=== PATIENT | male | born 1990 | race Two or more races ===

== ENCOUNTER 2021-03-11 18:05 | Emergency (ER) | payer SELFPAY ==
[~2021-03-11] VITALS: Ht 172.7 cm; Wt 81.2 kg
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
--- NOTE | 2021-03-11 18:15 | NUR ---
DR. BAEBE AT BEDSIDE FOR EVAL.
[2021-03-11] MEDS ORDERED: LEVETIRACETAM (500MG) 1,000 MG in IV NS 0.9% 100 ML IV SCH (18:30)
[2021-03-11 18:45] LABS: BASOPHILS # (AUTO) 0.1 /CMM (0.0-0.2); BASOPHILS % (AUTO) 0.7 % (0.0-2.0); EOSINOPHILS % (AUTO) 1.4 % (0.0-6.0); HEMATOCRIT 40 % (39-51); LYMPHOCYTES # (AUTO) 1.6 /CMM (0.8-4.8); LYMPHOCYTES % (AUTO) 21.4 % (20.0-44.0); MEAN CORPUSCULAR HGB CONC 35 g/dl (31.0-36.0); MEAN CORPUSCULAR VOLUME 91 fL (80-96); MONOCYTES # (AUTO) 0.6 /CMM (0.1-1.30); MONOCYTES % (AUTO) 8.2 % (2.0-12.0); NEUTROPHILS # (AUTO) 5.2 /CMM (1.8-8.9); NEUTROPHILS % (AUTO) 68.3 % (43.0-81.0); PLATELET COUNT (AUTO) 353 /CMM (150-450); RED BLOOD CELL COUNT(AUTO) 4.44 MIL/uL (4.5-6.0); WHITE BLOOD COUNT (AUTO) 7.6 K/uL (4.3-11.0)
[2021-03-11 18:54] LABS: CALCIUM, SERUM 8.9 mg/dL (8.5-10.1); CREATININE 1.2 mg/dL (0.6-1.3); POTASSIUM 3.7 mmol/L (3.5-5.1)
--- NOTE | 2021-03-11 19:30 | NUR ---
RECEIVED REPORT FROM DAY SHIFT NURSE. PATIENT IS A/OX4, CONNECTED TO VRT MECHANIC AND POX, PATIENT IN NO SIGNS OF DISTRESS. WILL CONTINUE TO MONITOR.
[2021-03-11] MEDS ORDERED: LEVE500T9 PO (19:42)
--- NOTE | 2021-03-11 20:14 | NUR ---
PATIENT A/OX4, BREATHING EVEN AND UNLABORED, NO SOB NOTED, NO SEIZURE EPISODE AT THIS TIME. AMBULATORY WITH STEADY GAIT. RX PROVIDED. IV removed. Catheter intact and site benign. Pressure and 4x4 applied to site. No bleeding noted.Patient discharged to home in stable condition. Written and verbal after care instructions given. Patient verbalizes understanding of instruction.
[2021-03-11 20:15] VITALS: BP 111/68
== END 2021-03-11 20:15 | disposition home or self-care (01) ==
LOC: EDBD 18:08 → ER 18:08
DX: G40.909 Epilepsy, unspecified, not intractable, without status epilepticus (principal); Z79.899 Other long term (current) drug therapy
CPT/HCPCS: 36415; 71045; 80048; 85025; 93005; 96365; 99285; J1953; J7030